=== PATIENT | female | born 1955 | race Caucasian/White ===

== ENCOUNTER 2020-07-23 06:49 | Observation (INO) ==
--- NOTE | 2020-07-17 10:00 | Anesthesiology Consultation ---
Date of Service July 17, 2020 Assessment & Plan (1) Encounter for pre-operative examination: Chart Review Chart Review: Acceptable Risk for Surgery (pending DOS PRP and preop Covid testing ) and Patient NOT seen in Pre Admission Testing -Preop PRP out of date- will order for AM of surgery. Per nursing assessment 07/17/2020, patient resides and works in [facility]. Wears mask, uses good hand hygiene and socially distances. No known Covid positive contacts or Covid related symptoms. Pt initially scheduled 06/04/20 (see in PAT 05/29/20)- surgery canceled secondary to patient having positive Covid test 05/29/20. Per patient- feels test was false positive- was asymptomatic and had negative Covid test two days later on 05/31/20. Preop Covid testing done 07/17/20 at [facility]- will await results. History Surgery Operation Date: 07/23/20 11:55 Proposed Procedures p Right Total Hip Posterior Arthroplasty - Sunil Tee DO Height/Weight Height: 5 ft 8 in Weight: 109.769 kg Allergies Allergy/AdvReac Type Severity Reaction Status Date / Time gluten Allergy Unknown Gastrointestinal Verified 07/17/20 08:22 Upset Medications Home Medications Medication Instructions Recorded Confirmed Last Taken ascorbic acid (vitamin C) [Vitamin 250 mg PO QAM 05/22/20 07/17/20 Unknown C] meloxicam 15 mg PO QAM 05/22/20 07/17/20 Unknown chlorthalidone 25 mg PO QAM 07/17/20 07/17/20 Unknown multivitamin 1 tab PO BID 07/17/20 07/17/20 Unknown Past Medical History Medical History Cancer COLON- S/P BOWEL RESECETION- NO CHEMO OR RADIATION HTN (hypertension) [place] 2/2 Meloxicam, treated with chlorthalidone Osteoarthritis Past Family History Family History Mother Family history of reaction to anesthesia SLOW TO WAKE UP Aunt Family hx of colon cancer Aunt Family hx of colon cancer Aunt Family hx of colon cancer Aunt Family hx of colon cancer Family/Other Family hx of colon cancer Family/Other Family hx of colon cancer Past Surgical History Surgical History History of bowel resection 2010-NO CHEMO/NO RADIATION History of cholecystectomy History of colonoscopy History of dilatation and curettage History of hysterectomy TOTAL History of tonsillectomy History of total knee replacement LEFT 2019 Social History Smoking Status: Never smoker Do You Dip or Chew Tobacco: No Hx Alcohol Use: No Alcohol type: wine Hx Substance Use: No Testing Laboratory Results Laboratory Tests 05/29/20 05/29/20 11:58 11:58 WBC 6.08 Hgb 13.7 Hct 40.2 Plt Count 224 PT 10.8 INR 1.0 APTT 28.4 05/29/20= URINE CULTURE: More than 3 types of organisms present, all high counts mixed probable skin reba T&S: A positive- Antibody negative Electrocardiogram Date: 05/29/20 Findings: + NSR @ (74bpm) LAFB. Prolonged QT. Chest X-Ray Date: 05/29/20 Findings: + NAD
--- NOTE | 2020-07-22 20:55 | History & Physical Report ---
Date of Service July 23, 2020 Assessment & Plan (1) Degenerative joint disease of right hip: I have indicated the patient for right total hip replacement. The risks, benefits and complications of surgery were explained to the patient which include but not limited to infection, acute blood loss, DVT/PE, injury to nerves, vessels, bone, soft tissue, arthrofibrosis, chronic pain, failure of the prosthesis, hip dislocation, leg length discrepancy, need for additional surgery, cardiac and pulmonary events and . The patient wished to proceed with surgery and informed consent was obtained at this time. We will plan for ASA BID post-operatively for DVT prophylaxis. Upon discharge the patient will be discharged home with home health services. Appropriate clearances by PCP were obtained. History of Present Illness Chief Complaint: Right hip pain/djd Primary Care Provider: Chaz Pulliam MD The patient is a 64 year old female who presents with complaints of severe right hip pain and DJD. The patient has failed outpatient conservative treatments to this point which included NSAIDS, home exercise/walking program. Declined further conservative treatments including IA injection. The patient's pain and limited function have progressed to the point where they severely hinder their activities of daily living and they no longer tolerate exercise programs. They are requesting to proceed with total hip replacement surgery. Allergies Allergy/AdvReac Type Severity Reaction Status Date / Time gluten Allergy Unknown Gastrointestinal Verified 07/23/20 07:10 Upset Home Medications Medication Instructions Recorded Confirmed Type ascorbic acid (vitamin C) [Vitamin 250 mg PO QAM 05/22/20 07/23/20 History C] meloxicam 15 mg PO QAM 05/22/20 07/23/20 History chlorthalidone 25 mg PO QAM 07/17/20 07/23/20 History multivitamin 1 tab PO BID 07/17/20 07/23/20 History Past Med/Surg History Medical History Cancer COLON- S/P BOWEL RESECETION- NO CHEMO OR RADIATION HTN (hypertension) [place] 2/2 Meloxicam, treated with chlorthalidone Osteoarthritis Surgical History History of bowel resection 2009-NO CHEMO/NO RADIATION History of cholecystectomy History of colonoscopy History of dilatation and curettage History of hysterectomy TOTAL History of tonsillectomy History of total knee replacement LEFT 2019 Family History Mother Family history of reaction to anesthesia SLOW TO WAKE UP Aunt Family hx of colon cancer Aunt Family hx of colon cancer Aunt Family hx of colon cancer Aunt Family hx of colon cancer Family/Other Family hx of colon cancer Family/Other Family hx of colon cancer Social History Smoking Status: Never smoker Second Hand Exposure: Yes (FATHER SMOKED); Do You Dip or Chew Tobacco: No; Hx Alcohol Use: No Hx Substance Use: No Preferred Language: Maori Communication Ability: Effective Software Recruiter Required: No Beliefs That Will Affect Care: None Current Living Situation: Spouse Other Information That Helps Us Care for You: No Feels Safe at Home: Yes Safety Concerns: Feels Safe At This Time Assistive Devices: Glasses Review of Systems Review of Systems: All systems reviewed & are unremarkable except as noted in HPI & below Physical Exam Physical Exam: RLE NVSI +EHL/FHL/TA/GS SILT grossly, +2 DP pulse, compartments soft NT, limited painful ROM of the hip, antalgic gait. Constitutional: WD/WN, vitals as above Eyes: PERRL, conjunctivae normal, anicteric sclerae ENMT: external ear and nose normal, oropharynx normal Neck: trachea midline, no thyromegaly Respiratory: normal respiratory effort, lungs clear to auscultation Cardiovascular: RRR, no murmur, no edema Gastrointestinal (Abdomen): normal bowel sounds, soft, nontender, no hepatosplenomegaly Musculoskeletal: no cyanosis or clubbing, extremities motor strength 5/5 Skin: no rashes, warm and dry Neurologic: patellar DTR's 2+ bilat, sensation intact Psychiatric: A+Ox3, euthymic affect Lymphatic: no cervical or axillary lymphadenopathy Results & Data Results & Data ([facility]) Diagnostic Findings Multiple views of the hip demonstrates severe DJD with complete loss of the joint space. +osteophytes, +sclerosis, +subchondral cysts.
[~2020-07-23 06:49] MED LIST: ACETAMINOPHEN 500 MG TAB PO SCH; CeleBREX 200 MG CAP PO SCH; FAMOTIDINE 20 MG TAB PO SCH; GABAPENTIN 300 MG CAP PO SCH; LR 500ML BOLUS, THEN 15ML/HR IV SCH; METOCLOPRAMIDE HCL 10 MG TABLET PO SCH; ROPIVACAINE 0.5% HCL/PF 150 MG, BUPIVACAINE 0.75% MPF 20 ML, EPINEPHrine 30MG/30ML (OR ... INSTIL SCH; TRANEXAMIC ACID 1,000 MG **IV Intra-op IV SCH; TRANEXAMIC ACID 1,000 MG **IV Pre-op IV SCH; ceFAZolin 2000MG 2,000 MG/15 ML SYR IV SCH; dexAMETHasone 4 MG TAB PO SCH
[2020-07-23] MEDS ORDERED: BUPIVACAINE 0.5 % 5 MG/1 ML PF 10ML VIAL ONE (07:32)
[2020-07-23 07:46] LABS: BUN Creatinine Ratio 13.1 (10-20); Calcium 9.5 mg/dl (8.5-10.1); Est GFR (African American) 65.6; Est GFR (Non-African American) 56.6; Potassium 3.3 mmol/L (3.5-5.1)
[2020-07-23] MEDS ORDERED: METOCLOPRAMIDE HCL 10 MG TABLET ONE (07:48)
[2020-07-23] MEDS ORDERED: dexAMETHasone 4 MG TAB PO ONE (07:49)
[2020-07-23] MEDS ORDERED: GABAPENTIN 300 MG CAP ONE (07:49)
[2020-07-23] MEDS ORDERED: TRANEXAMIC ACID / 0.7% NACL 1000MG/100ML BAG IV ONE ×2 (07:49→07:50)
[2020-07-23] MEDS ORDERED: FAMOTIDINE 20 MG TAB ONE (07:49)
[2020-07-23] MEDS ORDERED: MIDAZOLAM HCL 1 MG/ML 2ML VIAL ONE ×3 (08:40→12:04)
[2020-07-23] MEDS ORDERED: LIDOCAINE HCL 2% 2 ML VIAL/AMP(20MG/ML) INFIL ONE (08:40)
[2020-07-23] MEDS ORDERED: PROPOFOL IV EMULSION 10 MG/ML 20 ML VIAL IV ONE ×3 (08:40→13:06)
[2020-07-23] MEDS ORDERED: BACITRACIN INJ 50,000 UNIT VIAL ONE (10:01)
--- NOTE | 2020-07-23 10:11 | History & Physical Bridge Note ---
Date of Service July 23, 2020 History & Physical Bridge Note I have examined the patient, reviewed the History & Physical and in the interval since the performance of the History & Physical I have noted the following changes of clinical significance: no changes noted
[2020-07-23] MEDS ORDERED: KETAMINE 50 MG/5 ML SYRINGE ONE (12:40)
--- NOTE | 2020-07-23 13:29 | Post Operative Brief Note ---
Immediate Post Op Note v1 Date of Surgery July 23, 2020 Pre & Post Diagnosis Operation Date: 07/23/20 09:35 Pre-Op Diagnosis: Unilateral Primary Osteoarthritis, Right Hip Post-Op Diagnosis: Unilateral Primary Osteoarthritis, Right Hip I identified the patient and participated in the time-out.: Yes Procedure Operation Date: 07/23/20 09:35 Actual Procedures p Right Total Hip Posterior Arthroplasty(Right) - Sunil Tee DO Surgeon Sunil Tee DO Claims Support Specialist none Estimated Blood Loss 200 Findings Consistent with Post-Op Diagnosis Specimens femoral head Anesthesia Type Spinal MAC Complications none Disposition Disposition: Recovery Room Overlapping Procedure I was present for: the critical portions of procedure. I was immediately available: during the entire case. Back up surgeon: was not required during procedure.
--- NOTE | 2020-07-23 13:32 | Operative Report ---
Post Operative Report Pre & Post Diagnosis Operation Date: 07/23/20 09:35 Pre-Op Diagnosis: Unilateral Primary Osteoarthritis, Right Hip Post-Op Diagnosis: Unilateral Primary Osteoarthritis, Right Hip I identified the patient and participated in the time-out.: Yes Procedure Operation Date: 07/23/20 09:35 Actual Procedures p Right Total Hip Posterior Arthroplasty(Right) - Sunil Tee DO Surgeon Sunil Tee DO Professor Of Geography none Estimated Blood Loss 200 Findings Consistent with Post-Op Diagnosis Specimens femoral head Anesthesia Type Spinal MAC Complications none Disposition Disposition: Recovery Room Indications The patient is a 64-year-old female who presents with severe progressive right hip DJD who has failed outpatient conservative treatments. I indicated the patient for a total hip replacement and the risks and benefits were explained in detail which included but not limited to infection, bleeding, blood clot, damage to surrounding bone, nerves, vessels, soft tissue, hip dislocation, failure of the prosthesis, leg length discrepancy, need for additional surgery and . The patient agreed to proceed with replacement of the hip and informed consent was obtained. Appropriate clearances were obtained. Description of Procedure COMPONENTS USED: [employer]rence [employer] hip system: Acetabulum size 54 G7, femur size 12.5 standard offset, femoral head 36+3.5, liner 54x36, acetabular screw 15 mm x 1. Following induction of adequate spinal anesthesia, the patient was transferred to the OR table and placed in lateral decubitus position with left hip down. The right hip was prepped and draped in the typical sterile fashion. A timeout was performed, patient identified and site tiara confirmed. Appropriate antibiotics were given. A standard posterolateral/Stephan-Langenbeck incision was made. Subcutaneous tissue was sharply dissected. Electrocautery was utilized for hemostasis. The fascia was incised throughout the length of the wound and retracted with the Charnley retractor. The bursa was taken down and the short external rotators were identified. The piriformis was tagged with #1 Vicryl. The short external rotators and capsule were divided from the posterior aspect of the femur using electrocautery. The posterior capsule was tagged with #1 Vicryl. Both external rotators and posterior capsule were swept posterior and protected, along with protecting the sciatic nerve. The hip was dislocated by flexion and internally rotation in a controlled manner and exposure of the femoral neck was gained with an old-style Hohmann and a blunt cobra retractor. A femoral cutting guide was utilized for making the appropriate level femoral neck cut with reciprocating saw. The femoral head was removed, measured and reserved on the back table. Next, attention was turned to the acetabulum. A posterior and anterior offset retractor was placed to gain adequate exposure. Acetabular labrum as well as posterior capsule elements were removed using electrocautery and forceps. Fovea centralis was cleared of all soft tissue. Sequential reaming was performed starting at 44 mm and carried up to a 53 mm and decision was made to proceed with impaction of a 54 mm G7 Osteo-Ti cup. This was impacted and held using a single 15 mm acetabular screw. The trial acetabular liner was placed at this time. Next, attention was turned to the p roximal femur where a Bovie and pickup was used to further clear short external rotators from their insertion on the femur. Box osteotome and canal finder was used to gain access to the femoral canal and the lateral reamer on power was used to further open the proximal lateral canal. Sequentially rasping was carried up to a 12.5 which gave good fit and fill of the proximal femur. A trial reduction was carried out with a standard offset femoral neck component a 36+3.5 mm femoral head. The trial reduction was stable in all degrees of rotation with no [id number]-[id number] impingement. The hip was dislocated, trial components were removed and access to the acetabulum was re-established. The trial liner was removed and the cup was irrigated to ensure all debris was removed. The final acetabular liner was inserted and properly seated in the cup. Access to the femur was once more gained and the size 12.5 femoral stem with standard offset was impacted into position. The hip was once more assessed with the 36+2.5 mm femoral head. Stability was accessed and found to be excellent with equal leg lengths. The hip was dislocated for the last time and the final 36+3.5 ceramic femoral head was impacted in place and the hip was reduced. Range of motion was checked once again and found to be stable. A Betadine soak was performed. After 3 minutes, the hip was once more irrigated with copious sterile saline solution with bacitracin. The regino-incisional soft tissue was injected utilizing [place] ortho mix which includes a combination of Ropivicaine 0.5% 150mg, Bupivicaine 0.5%/Epinephrine 1:200,000 30ml, Toradol 30mg, Dexamethasone 4mg, Ketamine 10mg, Clonidine 100mcg and NSS 30ml Orthomix solution. The piriformis, external rotators and capsule were repaired to the greater trochanter through bone tunnels using #5 FiberWire. The fascia was closed using #1 Vicryl, subcutaneous tissue was closed using 2-0 Vicryl, and skin was closed with destiny. A sterile dry dressing was applied which included teresita incisional VAC. The patient tolerated the procedure well and was transported to PACU in stable condition. I attest to the content of the Intraoperative Record and any orders documented therein. Any exceptions are noted below.
--- NOTE | 2020-07-23 14:28 | XRay Report ---
XR hip 1V RT w pelvis HISTORY: 64 years-old Female IN PACU - A/P PELVIS and LATERAL HIP right hip total joint arthroplast y COMPARISON: None TECHNIQUE: AP view of the pelvis with crosstable lateral view of the right hip FINDINGS: Moderate left hip osteoarthritis. Right hip total joint arthroplasty demonstrates satisfactory alignm ent. No acute fracture or unexpected opaque foreign body. Expected postsurgical soft tissue swelling and deep tissue air with overlying skin destiny. Surgical clips of the pelvis. IMPRESSION: Right hip total joint arthroplasty with expected postoperative changes. ACT 112: Negative or not required by law. The above report was generated using voice recognition software. It may contain grammatical, syntax o r spelling errors. Electronically signed by: Fady Barber M.D. 07/23/2020 2:27 PM
--- NOTE | 2020-07-23 14:37 | Orthopedic Progress Note ---
Date of Service July 23, 2020 Assessment & Plan (1) Degenerative joint disease of right hip: Status post right total hip arthroplasty -Ancef x24 -DVT prophylaxis: SCDs, teds, ASA twice daily -Weight-bear as tolerates right lower extremity -PT/OT -Posterior hip precautions -Postoperative x-ray demonstrates a well aligned well fixed total hip prosthesis without fracture or dislocation -A.m. labs -DC planning Subjective Post Operative Progress Note Patient seen sitting up in bed, comfortable, denies complaints, pain well controlled, no acute issues. Still feeling effects of spinal anesthesia. Review of Systems Review of Systems: All systems reviewed & are unremarkable except as noted in HPI & below Constitutional: as per Subjective / HPI Physical Exam Physical Exam: Right lower extremity physical exam limited secondary to spinal anesthesia, +2 dorsalis pedis pulse, compartment soft nontender, abduction pillow in place, dressing clean dry and intact. Constitutional: WD/WN, vitals as above Results & Data ([facility]) Vital Signs (Past 12 Hours) Vital Signs Temp Pulse Pulse Resp BP BP Pulse Ox 07/23/20 14:15 65 15 123/63 99 07/23/20 14:00 36.6 C 64 14 118/64 98 07/23/20 13:50 64 15 121/67 97 07/23/20 13:40 60 16 120/68 99 07/23/20 13:30 58 L 15 121/64 99 07/23/20 13:20 36.1 C L 63 16 102/65 98 07/23/20 08:13 36.8 C 80 18 153/76 H 99 07/23/20 07:17 36.6 C 100 H 18 174/96 H 99
[2020-07-23] MEDS ORDERED: ATROPINE SULFATE 0.1 MG/ML 10ML SYR IV PRN (14:42)
[2020-07-23] MEDS ORDERED: ePHEDrine sulfate 50 MG/ML AMP IV PRN (14:42)
--- NOTE | 2020-07-23 14:42 | Anesthesiology Progress Note ---
Date of Service July 23, 2020 Anesthesia Post Procedure Vital Signs Vital Signs: Temp Pulse Pulse Resp BP BP Pulse Ox 07/23/20 14:15 65 15 123/63 99 07/23/20 14:00 36.6 C 64 14 118/64 98 07/23/20 13:50 64 15 121/67 97 07/23/20 13:40 60 16 120/68 99 07/23/20 13:30 58 L 15 121/64 99 07/23/20 13:20 36.1 C L 63 16 102/65 98 07/23/20 08:13 36.8 C 80 18 153/76 H 99 07/23/20 07:17 36.6 C 100 H 18 174/96 H 99 Pain Intensity Right Hip: Pain Intensity: 2 Transfer of Care Handoff Completed per policy Notes Mental Status: alert / awake / arousable Patient Amnestic to Procedure: Yes Nausea / Vomiting: adequately controlled Pain: adequately controlled Airway Patency, RR, SpO2: stable & adequate BP & HR: stable & adequate Hydration State: stable & adequate Neuraxial Anesthesia: was administered and sensory block is resolving Anesthetic Complications: no major complications apparent
[2020-07-23] MEDS ORDERED: METOCLOPRAMIDE HCL INJ 5 MG/ML 2 ML VIAL IV PRN (15:04)
[2020-07-23] MEDS ORDERED: ONDANSETRON INJ 2 MG/ML 2 ML VIAL IV PRN (15:04)
[2020-07-23] MEDS ORDERED: bisacodyL 10 MG SUPP PR PRN (15:04)
[2020-07-23] MEDS ORDERED: MAGNESIUM HYDROXIDE SUSP 30 ML UDC PO PRN (15:04)
[2020-07-23] MEDS ORDERED: ceFAZolin 2000MG 2,000 MG/15 ML SYR IV SCH (15:04)
[2020-07-23] MEDS ORDERED: oxyCODONE HCL IR 5 MG TAB (IMMEDIATE RELEASE) PO PRN (15:04)
[2020-07-23] MEDS ORDERED: diphenhydrAMINE Capsule 25 MG CAP PO PRN (15:04)
[2020-07-23] MEDS ORDERED: HYDROmorphone INJ 0.5 MG/0.5 ML SYR IV PRN (15:04)
[2020-07-23] MEDS ORDERED: NALOXONE HCL 0.4 MG/1 ML VIAL/CARP IV PRN (15:04)
[2020-07-23] MEDS: SODIUM CHLORIDE 0.9% 1000ML 1,000 ML IV SCH (15:30)
[2020-07-23] MEDS: ACETAMINOPHEN 500 MG TAB PO SCH ×2 (15:30→22:23)
[2020-07-23] MEDS: KETOROLAC TROMETHAMINE 15 MG/ML VIAL IV SCH ×2 (15:31→21:54)
[2020-07-23] MEDS: ceFAZolin 3,000 MG in DEXTROSE 5% 50 ML IV SCH (17:53)
[2020-07-23] MEDS: DOCUSATE SODIUM 100 MG CAP PO SCH (20:24)
[2020-07-23] MEDS ORDERED: SENNA 8.6 MG TAB PO SCH (21:00)
[2020-07-24] MEDS ORDERED: Nursing to Pharmacy Communication SCH (01:30)
[2020-07-24] MEDS: ceFAZolin 3,000 MG in DEXTROSE 5% 50 ML IV SCH (02:38)
[2020-07-24] MEDS: KETOROLAC TROMETHAMINE 15 MG/ML VIAL IV SCH ×2 (03:49→10:47)
[2020-07-24] MEDS: ACETAMINOPHEN 500 MG TAB PO SCH ×2 (06:25→14:05)
[2020-07-24] MEDS: SODIUM CHLORIDE 0.9% 1000ML 1,000 ML IV SCH (07:13)
[2020-07-24 08:14] LABS: Basophils # (auto) 0.01 K/uL (0-0.2); Basophils % (auto) 0.1 %; Hematocrit (blood only) 36.8 % (37-47); Hemoglobin 12.8 g/dL (12.0-16.0); Immature Granulocytes # (auto) 0.06 K/uL (0.00-0.02); Immature Granulocytes % (auto) 0.4 %; Lymphocytes # (auto) 1.18 K/uL (1.2-3.4); Lymphocytes % (auto) 7.4 %; Mean Corpuscular Hgb Conc 34.8 g/dL (32-36); Mean Corpuscular Volume 86.4 fL (80-100); Mean Platelet Volume 10.1 fL (7.4-10.4); Monocytes # (auto) 1.25 K/uL (0.11-0.59); Monocytes % (auto) 7.8 %; Neutrophils # (auto) 13.44 K/uL (1.4-6.5); Neutrophils % (auto) 84.3 %; Platelet Count 263 K/uL (130-400); RDW Coefficient of Variation 13.8 % (11.5-14.5); RDW Standard Deviation 43.6 fL (36.4-46.3); Red Blood Count 4.26 M/uL (4.2-5.4); White Blood Count 15.94 K/uL (4.8-10.8)
[2020-07-24 08:24] LABS: BUN Creatinine Ratio 14.4 (10-20); Calcium 9.4 mg/dl (8.5-10.1); Creatinine Clr Calc Pharmacy 79.9 ml/min; Est GFR (African American) 78.3; Est GFR (Non-African American) 67.5; Potassium 3.8 mmol/L (3.5-5.1)
--- NOTE | 2020-07-24 08:39 | Orthopedic Progress Note ---
Date of Service July 24, 2020 Assessment & Plan (1) Degenerative joint disease of right hip: Status post right total hip arthroplasty POD#1 -Ancef x24 -DVT prophylaxis: SCDs, teds, ASA twice daily -Weight-bear as tolerates right lower extremity -PT/OT -Posterior hip precautions -Postoperative x-ray demonstrates a well aligned well fixed total hip prosthesis without fracture or dislocation -A.m. labs - as above, hgb 12.8 -DC planning - home with Admission and Anticipated Discharge Date Admission Date: July 23, 2020 Subjective Post Operative Progress Note Patient seen sitting up at bedside, comfortable, denies complaints, pain well controlled, no acute issues. Denies F/C/N/V/SOB/CP. Review of Systems Review of Systems: All systems reviewed & are unremarkable except as noted in HPI & below Constitutional: as per Subjective / HPI Physical Exam Physical Exam: RLE NVSI +EHL/FHL/TA/GS SILT grossly, +2 DP pulse, compartments soft NT, dressing cdi. Results & Data ([facility]) Vital Signs (Past 12 Hours) Vital Signs Temp Pulse Resp BP Pulse Ox 07/24/20 07:48 36.3 C L 66 18 150/88 H 100 07/24/20 04:20 36.5 C 68 14 113/68 98 07/23/20 23:34 36.3 C L 73 14 115/67 97 Laboratory Results 07/24/20 07/24/20 07/23/20 Range/Units 07:28 07:28 07:12 WBC 15.94 H (4.8-10.8) K/uL RBC 4.26 (4.2-5.4) M/uL Hgb 12.8 (12.0-16.0) g/dL Hct 36.8 L (37-47) % MCV 86.4 (80-100) fL MCH 30.0 (25-34) pg MCHC 34.8 (32-36) g/dL RDW Std Deviation 43.6 (36.4-46.3) fL RDW Coeff of Flo 13.8 (11.5-14.5) % Plt Count 263 (130-400) K/uL MPV 10.1 (7.4-10.4) fL Immature Gran % (Auto) 0.4 % Neut % (Auto) 84.3 % Lymph % (Auto) 7.4 % [place] % (Auto) 7.8 % Eos % (Auto) 0.0 % Baso % (Auto) 0.1 % Neut # (Auto) 13.44 H (1.4-6.5) K/uL Lymph # (Auto) 1.18 L (1.2-3.4) K/uL [place] # (Auto) 1.25 H (0.11-0.59) K/uL Eos # (Auto) 0.00 (0-0.5) K/uL Baso # (Auto) 0.01 (0-0.2) K/uL Immature Gran # (Auto) 0.06 H (0.00-0.02) K/uL Sodium 140 (136-145) mmol/L Potassium 3.8 D (3.5-5.1) mmol/L Chloride 107 (98-107) mmol/L Carbon Dioxide 28 (21-32) mmol/L Anion Gap 6.0 (3-11) BUN 13 (7-18) mg/dl Creatinine 0.89 (0.6-1.2) mg/dl Est Cr Clr Drug Dosing 79.9 ml/min Est GFR ( Amer) 78.3 Est GFR (Non-Af Amer) 67.5 BUN/Creatinine Ratio 14.4 (10-20) Glucose 117 H (70-99) mg/dl Calcium 9.4 (8.5-10.1) mg/dl Hepatitis C Ab Screen Neg (Neg)
[2020-07-24] MEDS: DOCUSATE SODIUM 100 MG CAP PO SCH (08:46)
[2020-07-24] MEDS ORDERED: ASPIRIN 325 MG ECTAB PO SCH (09:00)
[2020-07-24] MEDS ORDERED: MULTIVITAMIN TAB PO SCH (09:00)
--- NOTE | 2020-07-24 18:09 | Discharge Summary ---
Date of Service July 24, 2020 Admission HPI Per Admitting Provider The patient is a 64 year old female who presents with complaints of severe right hip pain and DJD. The patient has failed outpatient conservative treatments to this point which included NSAIDS, home exercise/walking program. Declined further conservative treatments including IA injection. The patient's pain and limited function have progressed to the point where they severely hinder their activities of daily living and they no longer tolerate exercise programs. They are requesting to proceed with total hip replacement surgery. Principal Diagnosis Right total hip replacement -Right hip DJD Discharge Exam RLE NVSI +EHL/FHL/TA/GS SILT grossly, +2 DP pulse, compartments soft NT, dressing cdi. Constitutional WD/WN, vitals as above Discharge Data Allergies Allergy/AdvReac Type Severity Reaction Status Date / Time gluten Allergy Unknown Gastrointestinal Verified 07/23/20 07:10 Upset Consultations 07/24/20 08:00 Consult Case Management - Discharge Planning Routine Procedures Performed Operation Date: 07/23/20 09:35 Actual Procedures p Right Total Hip Posterior Arthroplasty(Right) - Sunil Tee DO Hospital Course (1) Degenerative joint disease of right hip: The patient is a 64 -year-old female who presents with long standing history of severe right hip DJD and failed outpatient conservative treatments. The patient's symptoms have progressed to the point where it has been difficult to perform even normal activities of daily living. I indicated the patient for a right total hip arthroplasty, the risks, benefits and complications of the procedure include but not limited to infection, bleeding, damage to bone, nerves, vessels, surrounding soft tissue, may develop blood clots, loss of function, leg length discrepancy, dislocation, failure of the components, loosening of the components, the need for additional surgery and . The patient wished to proceed with surgery at this time and informed consent was obtained. Hospital Course: On 07/23/20 the patient was taken to the operating room, adequate anesthesia administered and underwent a right total hip arthroplasty. The patient tolerated the procedure well and was taken to the PACU in stable condition. Post-operatively the patient was started on a DVT ppx medication and given appropriate IV antibiotics. Consults were placed to physical therapy, occupational therapy and case management. On POD#1, the patient did well overnight and their pain was well controlled. Labs were drawn and the Hgb was 12.8. The patient progressed well with PT. Dressings were changed at this time and the incision was clean, dry and intact. The patients hospital stay was relatively uneventful and they were deemed stable by the orthopedic team and consultants to be discharged home with HH on 07/24/20. Discharge Instructions: Upon discharge the patient may weight bear as tolerates through their operative extremity. They were instructed to keep the incision clean and dry at all times. The patient may shower but should not submerge the incision, avoid bathing, pools and hot tubs. The patient was given a script for pain medication and should take as instructed. The patient was given a script for DVT ppx 325mg ASA BID and should take as directed. The patient was instructed to not drive or travel for long distances until cleared to do so. If the patient develops any symptoms of fevers, chills, nausea, vomiting, increased redness, swelling, pain or drainage from the surgical site, they should notify the office and/or proceed to the nearest emergency room. The patient should follow up in 10-14 days after surgery for their routine post-operative follow-up appointment and should call the office, to confirm the date and time. Status post right total hip arthroplasty POD#1 -Ancef x24 -DVT prophylaxis: SCDs, teds, ASA twice daily -Weight-bear as tolerates right lower extremity -PT/OT -Posterior hip precautions -Postoperative x-ray demonstrates a well aligned well fixed total hip prosthesis without fracture or dislocation -A.m. labs - as above, hgb 12.8 -DC planning - home with Total Time Total Time Spent Total Time Spent (In Minutes): 30 Discharge Plan Discharge Items Patient Disposition: Home - Home Health Services Reason For Visit: Unilateral Primary Osteoarthritis, Right Hip Discharge Diagnosis: Right total hip replacement -Right hip DJD Condition on Discharge: Good Activity: Per Instructions section Lifting: Wait until after follow-up appointment Bathing: Keep incision dry Bathing Comment: No bathing, pools or hot tubs. Sexual Activity: Wait until after follow-up appointment Exercise/Sports: Wait until after follow-up appointment Driving/Machine Use: No driving Weightbearing: Right weightbearing Non-emergency contact: Primary Care Provider and Surgeon Call non-emergency contact if: you have any medication questions, your symptoms worsen, your pain is not controlled, your pain is worsening, your pain is unusual for you, your pain is concerning for you, you have a fever, your temperature is above 101, your wound has increased redness, your wound has increased drainage and your wound pain has increased Follow-up/Referrals: Chaz Pulliam MD [Primary Care Provider] - Diet: Regular Addtl Attending Provider Instructions: ACTIVITY RECOMMENDATIONS: SELF CARE INSTRUCTIONS AFTER TOTAL HIP REPLACEMENT Until the incision and soft tissues around your hip have healed, there is a possibility that the hip prosthesis could dislocate. A. Observe the following precautions to prevent dislocation: 1. Don't bend your hip greater than 90 degrees. 2. Avoid crossing your legs or ankles while standing or lying. 3. Sit with your feet placed 6 inches apart. 4. When sitting, keep your knees below your hips. Sit on a firm surface, avoid deep, soft chairs and couches. Use an elevated toilet seat in the bathroom. 5. Don't bend over at the waist. Use a long handled shoehorn and a sock aid to help you put on your shoes and socks. A telemedicine physician can help you bead picker objects that are too high or too low to reach. 6. Keep car riding to a minimum for at least one month after surgery. B. Your balance may be shaky for a while. Use crutches or a walker until directed by your doctor. C. Use hand rails when walking on stairs. D. Wear low heeled shoes with non-slip soles. E. Be sure that your floors are free of things that could trip you - throw rugs, electrical cords, small objects. Avoid wet and waxed floors, especially with crutches and canes. F. Try to walk several times a day with rest periods between. G. Continue with all the exercises taught to you in the hospital. Again, make walking a part of your daily routine. SPECIAL CARE INSTRUCTIONS: VERY IMPORTANT TO READ AND REVIEW A. You may still be at risk for phlebitis and blood clots. 1. Wear surgical stockings (KRIS hose) for 2 weeks after surgery to improve circulation and reduce swelling. 2. Take Aspirin 325mg twice daily for 4 weeks or as directed by your doctor. This is your blood thinner. 3. High risk patients may be prescribed a stronger blood thinner if necessary. 4. If you are on Coumadin normally, your family doctor/user experience designer should monitor your blood work. Expect a phone call the day of or the day after bloodwork is drawn to adjust your dosage. B. You must take antibiotics before having dental work, bladder, bowel and other surgery. Your doctor will provide you with a permanent card to carry describing precautions. C. Call [facility] if you have a fever, redness or swelling around the incision, cloudy drainage from incision, or sudden increase in pain in your hip, not relieved by your regular pain medication. D. Please call the office at if you have any concerns or questions about your operation or recovery. * YOU MAY SHOWER, NO TUB BATHS UNTIL CLEARED BY YOUR DOCTOR. * WEAR KRIS HOSE 20 HOURS PER DAY FOR 2 WEEKS. * YOU SHOULD USE A WALKER OR CRUTCHES FOR 2-4 WEEKS. THIS WILL HELP PREVENT STRAIN ON YOUR HIP MUSCLE AND ALLOW IT TO HEAL PROPERLY. YOU MAY WEAN TO A CANE TOLERATED. * MOST PATIENTS WILL HAVE HOME NURSING FOR THERAPY. IF YOU DECIDE TO DO OUTPATIENT PHYSICAL THERAPY, PLEASE SCHEDULE THIS 3 TIMES PER WEEK. * YOU MAY HAVE A LARGE, BAND-CHRISTINAO LIKE DRESSING (SILVERON). THIS WILL REMAIN ON YOUR INCISION FOR 7 DAYS, THEN CAN BE REMOVED. IF INCISION IS LEAKING THROUGH DRESSING, PLEASE CALL THE OFFICE . FOLLOW UP VISIT: If appointment is not already scheduled: Please call [facility] to make a follow-up appointment for 2 weeks after your surgery at . Pending Studies at Discharge: No Stand-Alone Forms: My [facility], Opioid Pain Management, Smoking Cessation Medications and DC Order Prescriptions: New acetaminophen 500 mg Tablet 1,000 mg PO Q8 PRN (Reason: pain/fevers) Qty: 90 RF: 0 aspirin [Ecotrin] 325 mg Tablet,Delayed Release (Dr/Ec) 325 mg PO BID Qty: 56 RF: 0 oxycodone 5 mg Tablet 5 mg PO Q6H MDD 4 PRN (Reason: pain) Qty: 30 RF: 0 celecoxib [Celebrex] 200 mg Capsule 200 mg PO BID PRN (Reason: pain/inflammation) Qty: 28 RF: 0 sennosides [Senokot] 8.6 mg Tablet 17.2 mg PO HS PRN (Reason: constipation) Qty: 28 RF: 0 Continued ascorbic acid (vitamin C) [Vitamin C] 250 mg Tablet 250 mg PO QAM RF: 0 multivitamin Tablet 1 tab PO BID RF: 0 chlorthalidone 25 mg Tablet 25 mg PO QAM RF: 0 Discontinued meloxicam 15 mg Tablet 15 mg PO QAM RF: 0 Discharge Orders: Discharge Order (Routine); Ordered 07/24/20 Ordered By: Sunil Palmer/Other Patient Handouts: Total Hip Replacement Admission Data Admit Date/Time: 07/23/20 13:59 Attending Provider: Sunil Tee Admit Provider: Sunil Tee Primary Care Provider: Chaz Pulliam Other Providers: [facility],Home Health Other Interventions: Discharge Summary Assessment (RN) Last Done: 07/24/20 10:31
[2020-07-24] MEDS ORDERED: CeleBREX 200 MG CAP PO SCH (21:00)
== END 2020-07-24 14:45 | disposition home health service (06) ==
LOC: ASU 06:49 → 3W 06:49